=== PATIENT | male | born 1965 | race Caucasian/White ===

== ENCOUNTER 2023-11-25 16:32 | Outpatient (CLI) | payer OTHER ==
--- NOTE | 2023-11-25 22:50 | CT Report ---
PROCEDURE: KUB INDICATIONS: STOOL BURDEN EVAL, POST TREATMENT TECHNIQUE: A CT scan of the abdomen and pelvis was performed without the use of intravenous contrast. Images we re recorded and evaluated at appropriate window settings. Reformats: coronal and sagittal. For radiat ion dose reduction, the following was used: automated exposure control, adjustment of mA and/or kV ac cording to patient size. COMPARISON: None. FINDINGS: Image quality: Diagnostic. Lower chest: Unremarkable. Liver: No contour-deforming mass. Gallbladder: No radiopaque stones or wall thickening. Biliary tree: No intrahepatic or extrahepatic dilation, accounting for age. Spleen: No splenomegaly. Pancreas: No pancreatic ductal dilation. Adrenals: No adrenal nodule. Kidneys and ureters: Partial staghorn calculus in the right renal pelvis measuring up to 1.7 cm in la rgest dimension with Hounsfield units of 1686 (). Collection of 8 mm calculi in the right inferio r calyx (81). 2 mm calculus in the left inferior renal calyx (80). No hydronephrosis. Stomach, bowel and peritoneum: No gastric or small bowel dilation. No abnormal wall thickening. No pa thologic free fluid. Small hiatal hernia. Scattered colonic diverticulosis. Small stool burden. Erika l appendix in the right lower quadrant. Lymph nodes: No central or retroperitoneal adenopathy. Vessels: No infrarenal aortic aneurysm. Reproductive organs: Unremarkable. Bladder: Bladder wall thickness is normal, accounting for underdistention. No calcified bladder stone s. Pelvic lymph nodes: No adenopathy by size criteria. Bones: No aggressive osseous abnormality. Other: Small fat-containing umbilical hernia. IMPRESSION: 1.Bilateral nonobstructive nephrolithiasis, including a 1.7 cm partial staghorn calculus in the right renal pelvis. No hydronephrosis. 2.Small stool burden. 3.No other acute abnormality of the abdomen/pelvis. Reviewed by: Chandler Alves MD on 11/25/2023 10:48 PM PDT Approved by: Chandler Alves MD on 11/25/2023 10:48 PM PDT Station ID: [id number]
== END 2023-11-25 16:33 | disposition home or self-care (01) ==
LOC: DI 16:32
PROVIDERS: ATTEND Physician Assistant Medical
DX: N20.0 Calculus of kidney (principal)